=== PATIENT | male | born 1945 | race Hispanic/Latino ===

== ENCOUNTER 2023-11-13 10:28 | Day surgery (SDC) | payer OTHER ==
[~2023-11-13] VITALS: Ht 162.6 cm; Wt 56.7 kg
[2023-11-13] VITALS (17 sets, daily range): BP systolic 141–188; BP diastolic 37–68; PULSE 45–67; RESP 16–20
[2023-11-13] MEDS ORDERED: IOHEXOL-350 50ML VIAL IV ONE (11:45)
[2023-11-13] MEDS: 0.9%NACL 1000ML 1,000 ML IV ONE (11:55)
[2023-11-13] MEDS ORDERED: NEOSTIGMINE METHYLSULFATE 1MG/ML IV ONE (12:00)
[2023-11-13] MEDS ORDERED: MULT-1192 PO (12:00)
[2023-11-13] MEDS ORDERED: MORPHINE PO (12:00)
[2023-11-13] MEDS ORDERED: PROPOFOL 10 MG/ML 20ML VIAL IV ONE (12:00)
[2023-11-13] MEDS ORDERED: FENTANYL CITRATE PF 50 MCG/1 ML 2ML VIAL ONE (12:00)
[2023-11-13] MEDS ORDERED: SITA25TA5 PO (12:00)
[2023-11-13] MEDS ORDERED: MEGE400O46 PO (12:00)
[2023-11-13] MEDS ORDERED: GLYCOPYRROLATE 0.2 MG/ML 5 ML VIAL ONE (12:00)
[2023-11-13] MEDS ORDERED: METO-391 PO (12:00)
[2023-11-13] MEDS ORDERED: LIDOCAINE PF 100MG/5ML (2%) SYRINGE 5ML ONE (12:01)
[2023-11-13] MEDS ORDERED: ROCURONIUM BROMIDE 10MG/1ML 5ML VL ONE (12:01)
[2023-11-13] MEDS ORDERED: HYDRALAZINE 20MG/ML VIAL ONE (12:38)
[2023-11-13] MEDS: INDOMETHACIN 100 MG SUPP.RECT RC ONE (13:48)
== END 2023-11-13 15:00 | disposition home or self-care (01) ==
LOC: ENDO 10:28 → DAH 10:28 → ENDO 15:00
PROVIDERS: ATTEND Internal Medicine Gastroenterology
DX: T85.590A Other mechanical complication of bile duct prosthesis, initial encounter (principal); C25.0 Malignant neoplasm of head of pancreas; T18.3XXA Foreign body in small intestine, initial encounter; R63.4 Abnormal weight loss; K83.1 Obstruction of bile duct; D64.9 Anemia, unspecified; N18.9 Chronic kidney disease, unspecified; E10.22 Type 1 diabetes mellitus with diabetic chronic kidney disease; I12.9 Hypertensive chronic kidney disease with stage 1 through stage 4 chronic kidney disease, or unspecified chronic kidney disease; Y92.89 Other specified places as the place of occurrence of the external cause; Z95.5 Presence of coronary angioplasty implant and graft; Y83.8 Other surgical procedures as the cause of abnormal reaction of the patient, or of later complication, without mention of misadventure at the time of the procedure
CPT/HCPCS: 43238; 43276; 74328; 74330; 93005; C1769; J0360; J2001; J2704; J2710; J3010; J3490; J7030; Q9967; A4215; A4657; C1876